=== PATIENT | male | born 1970 | race Caucasian/White ===

== ENCOUNTER 2019-02-08 04:06 | Emergency (ER) | payer OTHER, SELFPAY ==
--- NOTE | 2019-02-08 04:10 | DI.CT.S_ITS ---
PROCEDURE: CT ABDOMEN PELVIS W CON INDICATIONS: ABDOMINAL PAIN TECHNIQUE: After the administration of intravenous contrast, 5 mm thick sections acquired from the diaphragm to the symphysis. 5 mm coronal and sagittal reformats were acquired. For radiation dose reduction, the following was used: automated exposure control, adjustment of mA and/or kV according to patient size. COMPARISON: None. FINDINGS: Image quality: Excellent. ABDOMEN: Lung bases: Lung bases are clear. Heart size is normal. Solid organs: Liver is normal in size and enhancement. Diffuse fatty infiltration of the liver. Gallbladder is within normal limits. Biliary system is non dilated. Pancreas enhances normally. Spleen is normal in size and enhancement. No adrenal nodules. Kidneys demonstrate normal size and enhancement, without hydronephrosis. Peritoneum and bowel: Bowel loops demonstrate normal wall thickness and caliber. No free fluid or air. The appendix is not definitely visualized, however no free fluid or inflammatory changes are noted adjacent to the cecum. Nodes and vessels: No retroperitoneal or mesenteric adenopathy by size criteria. Aorta and inferior vena cava are normal in size. Miscellaneous: No ventral hernias. PELVIS: Genitourinary: Bladder wall thickness is normal. Miscellaneous: No inguinal hernias or adenopathy. Bones: No suspicious bony lesions. No vertebral body compression fractures. IMPRESSION: 1. No acute disease process. 2. The appendix is not directly visualized. No secondary signs of appendicitis such as free fluid or inflammatory changes are identified adjacent to the cecum. 3. No free fluid or free air. 4. No dilated loops of bowel. 5. Hepatic steatosis. Dictated by: Izzy Jarrett MD, PhD on 02/08/2019 at 7:30 Approved by: Izzy Jarrett MD, PhD on 02/08/2019 at 7:34
--- NOTE | 2019-02-08 06:00 | PC.NURSE ---
Pt was seen during downtime, please see paper charting.
[2019-02-08 09:18] LABS: Alanine Aminotransferase 32 IU/L (21-72); Albumin 4.6 g/dL (3.5-5.0); Albumin Globulin Ratio 1.6 (1.0-2.8); Alkaline Phosphatase 65 U/L (38-126); Aspartate Aminotransferase 24 IU/L (17-59); Bilirubin Total 0.5 mg/dL (0.2-1.3); Blood Urea Nitrogen 16 mg/dL (9-20); Calcium 9.2 mg/dL (8.4-10.2); Carbon Dioxide 27 mmol/L (22-32); Chloride 100 mmol/L (98-107); Estimated Glomerular Filt Rate > 60.0 mL/min (>60); Globulin 2.8 g/dL (1.7-4.1); Glucose 123 mg/dL (70-100); HEMOLYSIS 18 (0-50); Lipase 73 U/L (23-300); Potassium 4.2 mmol/L (3.4-5.1); Sodium 136 mmol/L (137-145); Total Protein 7.4 g/dL (6.3-8.2); Troponin I < 0.012 ng/mL (0.01-0.034)
[2019-02-08 09:24] LABS: Add Manual Diff / Slide Review NO; Basophils Absolute Auto 0 /uL (0-100); Basophils Percent Auto 0.7 % (0-2); Eosinophils Absolute Auto 100 /uL (0-450); Eosinophils Percent Auto 1.6 % (2-4); Hematocrit 43.1 % (41-53); Hemoglobin 14.9 g/dL (13.5-17.5); Lymphocytes Absolute Auto 2000 /uL (1100-4500); Lymphocytes Percent Auto 28.2 % (25-40); Mean Corpuscular HGB Conc 34.6 % (30-36); Mean Corpuscular Volume 86.7 fL (80-100); Monocytes Absolute Auto 400 /uL (0-900); Monocytes Percent Auto 6.1 % (3-14); Neutrophils Absolute Auto 4500 /uL (1500-7000); Neutrophils Percent Auto 63.4 % (50-75); Platelet Count 235 X10^3/uL (150-400); Red Blood Cell Count 4.97 X10^6/uL (4.5-5.9); White Blood Cell Count 7.1 X10^3/uL (4.5-11.0)
== END 2019-02-08 06:00 | disposition home or self-care (01) ==
PROVIDERS: Emergency Provider Emergency Medicine
DX: R10.9 Unspecified abdominal pain (principal)
CPT/HCPCS: 74177; 80053; 83690; 84484; 85025; 93005; 99281; 99285; Q9967

== ENCOUNTER 2024-08-22 18:01 | Emergency (ER) | payer OTHER, SELFPAY ==
[2024-08-22] VITALS (7 sets, daily range): BP systolic 135–184; BP diastolic 85–108; PULSE 54–68; RESP 11–24; TEMP 36.6; O2SAT 95–98; BMI 31.0
--- NOTE | 2024-08-22 18:21 | DI.RAD.S_ITS ---
PROCEDURE: XR CHEST 1V INDICATIONS: chest pain TECHNIQUE: One view of the chest was acquired. COMPARISON: None. FINDINGS: Surgical changes and devices: None. Lungs and pleura: Lungs are clear. No pleural effusions or pneumothorax. Mediastinum: Mediastinal contours appear normal. Heart size is normal. Bones and chest wall: No suspicious bony lesions. Overlying soft tissues appear unremarkable. IMPRESSION: No acute cardiopulmonary abnormalities or focal consolidation. Dictated by: Nic Hardy M.D. on 08/22/2024 at 17:42 Approved by: Nic Hardy M.D. on 08/22/2024 at 17:43
--- NOTE | 2024-08-22 18:23 | EKG_ITS ---
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
[2024-08-22 18:54] LABS: Add Manual Diff / Slide Review NO; Basophils Absolute Auto 100 /uL (0-100); Basophils Percent Auto 0.8 % (0-2); Eosinophils Absolute Auto 200 /uL (0-450); Eosinophils Percent Auto 2.5 % (2-4); Hematocrit 45.4 % (41-53); Hemoglobin 15.4 g/dL (13.5-17.5); Lymphocytes Absolute Auto 2100 /uL (1100-4500); Lymphocytes Percent Auto 28.4 % (25-40); Mean Corpuscular Hemoglobin 29.9 PG (26-34); Mean Corpuscular Volume 87.9 fL (80-100); Monocytes Absolute Auto 500 /uL (0-900); Monocytes Percent Auto 6.5 % (3-14); Neutrophils Absolute Auto 4500 /uL (1500-7000); Neutrophils Percent Auto 61.8 % (50-75); Platelet Count 273 X10^3/uL (150-400); Red Blood Cell Count 5.17 X10^6/uL (4.5-5.9); Red Cell Distribution Width 12.7 % (11.6-14.8); White Blood Cell Count 7.4 X10^3/uL (4.5-11.0)
[2024-08-22 19:06] LABS: Prothrombin Time 11.3 SECONDS (9.4-12.5)
[2024-08-22 19:08] LABS: PTT Partial Thromboplastin Tim 43 SECONDS (25.1-36.5)
[2024-08-22 19:09] LABS: Alanine Aminotransferase 45 IU/L (<50); Albumin 4.9 g/dL (3.5-5.0); Albumin Globulin Ratio 1.8 (1.0-2.8); Alkaline Phosphatase 61 U/L (38-126); Aspartate Aminotransferase 28 IU/L (17-59); BUN Creatinine Ratio 14.2 (6-22); Bilirubin Total 0.7 mg/dL (0.2-1.3); Blood Urea Nitrogen 16 mg/dL (9-20); Calcium 9.4 mg/dL (8.4-10.2); Carbon Dioxide 25 mmol/L (22-32); Chloride 102 mmol/L (98-107); Creatine Kinase 104 U/L (55-170); Estimated Glomerular Filt Rate > 60 mL/min (>60); Globulin 2.8 g/dL (1.7-4.1); Glucose 94 mg/dL (70-100); HEMOLYSIS < 15 (0-50); Lipase 126 U/L (23-300); Magnesium 2.1 mg/dL (1.6-2.3); Potassium 3.9 mmol/L (3.4-5.1); Sodium 138 mmol/L (137-145); Total Protein 7.7 g/dL (6.3-8.2)
[2024-08-22 19:21] LABS: NT-proBNP (BNP-Adult 18+) < 20 pg/mL (<125); Troponin I < 0.012 ng/mL (0.01-0.034)
--- NOTE | 2024-08-22 19:44 | ED.CHESTPAIN ---
HPI - Chest Pain General Chief Complaint: Chest Pain Stated Complaint: arm pain high BP 157/110 Time Seen by Provider: 08/22/24 19:44 Source: patient, family, RN notes reviewed and old records reviewed Mode of arrival: Ambulatory Limitations: no limitations History of Present Illness HPI narrative: 54-year-old male history of hypertension which has been untreated presents for complaint of hypertension also states some tenderness of the volar wrist that he can reproduce with palpation. Patient states no other symptoms. He denies headache, denies vision changes, no chest pain or shortness of breath, no nausea or vomiting, no GI or urinary symptoms. No swelling in extremities. No abdominal back or flank pain. States pain is only present when he pushes on the volar side of his wrist sort of moves up linearly. Denies any numbness or tingling. Movement does not make it worse. If he was at rest or not doing anything he does not feel it that is only present when he palpates the area. Patient states he has been checking his blood pressure for about the past week has gotten blood pressures of a systolic of 141 50s on average and a diastolic of 100 to 110s. With a past 5 or so years typically his numbers has been similar to this. He was never been on blood pressure medication he does not take any prescriptions daily. Does not have a primary care physician. Has a history of pilonidal cyst removal. No known drug allergies. No tobacco, alcohol every couple weeks to months, no recreational drugs. Related Data Previous Rx's Medication Instructions Recorded benzonatate 100 mg capsule 200 mg (2 x 100 mg) PO BID PRN 06/21/23 cough #20 caps fluticasone propionate 50 1 spray intranasal Q12H #16 grams 06/21/23 mcg/actuation nasal spray,suspension (Flonase Allergy Relief) lisinopril 2.5 mg tablet 2.5 mg PO DAILY #30 tabs 08/22/24 Allergies Allergy/AdvReac Type Severity Reaction Status Date / Time No Known Drug Allergies Allergy Verified 08/22/24 18:22 Review of Systems Review of Systems ROS Unobtainable: All systems reviewed & are unremarkable except as noted in HPI and below Patient History Social History Smoking Status: Never smoker Smoking Status: Never smoker Exam Narrative Exam Narrative: GENERAL: Alert and oriented x three, well-appearing male in no acute distress. HEENT: Head normocephalic, atraumatic, EOMI, pupils reactive, face symmetric, moist mucous membranes NECK: Supple, full range of motion CARDIOVASCULAR: Regular rate and rhythm without murmurs, rubs or gallops. RESPIRATORY: Breath sounds equal bilaterally, no wheezes rales or rhonchi. ABDOMEN: Soft, nontender. Normoactive bowel sounds all 4 quadrants. No guarding or rebound, rigidity, no mass : No CVA tenderness EXTREMITIES: Normal range of motion, no clubbing or edema. Neurovascularly intact. 2+ radial pulse. Normal sensation, no swelling. Equal v[employer] social media and crm bilaterally. 5/5 muscle strength upper extremities. NEUROLOGICAL: Cranial nerves II through XII grossly intact. Moving all extremities SKIN: Warm, dry, no petechiae, no rashes or lesions. Initial Vital Signs Initial Vital Signs: Vital Signs Temperature 98 F 08/22/24 18:22 Pulse Rate 59 L 08/22/24 18:22 Respiratory Rate 16 08/22/24 18:22 Blood Pressure 184/108 H 08/22/24 18:22 Pulse Oximetry 97 08/22/24 18:22 Oxygen Delivery Method Room Air 08/22/24 18:22 Course Orders Ordered: ED Orders 08/22/24 18:21 XR chest 1V Stat EKG-12 Lead Stat 08/22/24 18:35 Complete Blood Count AUTO DIFF Stat Comprehensive Metabolic Panel Stat Lipase Stat Magnesium Stat NT-proBNP (BNP-Adult 18+) Stat PTT Partial Thromboplastin Nico Stat Prothrombin Time INR Stat Troponin & CK Cardiac Panel Stat Discontinued Medications Aspirin (Aspirin 81 Mg Chew Tab) 324 mg PO NOW ONE Stop: 08/22/24 18:22 Last Admin: 08/22/24 19:43 Dose: Not Given Documented By: Vital Signs Vital signs: Vital Signs - 8 hr 08/22/24 19:48 08/22/24 19:49 08/22/24 19:49 Pulse Rate 63 54 L Respiratory Rate 14 13 Blood Pressure 158/96 H Pulse Oximetry 97 97 Oxygen Delivery Method 08/22/24 19:51 08/22/24 20:00 08/22/24 20:00 Pulse Rate 59 L 60 Respiratory Rate 18 11 L Blood Pressure 158/97 H 139/92 H Pulse Oximetry 97 95 Oxygen Delivery Method Room Air Room Air 08/22/24 20:30 08/22/24 20:30 Pulse Rate 63 Respiratory Rate 24 Blood Pressure 135/90 Pulse Oximetry 96 Oxygen Delivery Method Room Air MDM - Chest Pain Lab Data 08/22/24 18:35 08/22/24 18:35 Labs: Lab Results 08/22/24 Range/Units 18:35 WBC 7.4 (4.5-11.0) X10^3/uL RBC 5.17 (4.5-5.9) X10^6/uL Hgb 15.4 (13.5-17.5) g/dL Hct 45.4 (41-53) % MCV 87.9 (80-100) fL MCH 29.9 (26-34) PG MCHC 34.0 (30-36) % RDW 12.7 (11.6-14.8) % Plt Count 273 (150-400) X10^3/uL Neut % (Auto) 61.8 (50-75) % Lymph % (Auto) 28.4 (25-40) % [place] % (Auto) 6.5 (3-14) % Eos % (Auto) 2.5 (2-4) % Baso % (Auto) 0.8 (0-2) % Neut # (Auto) 4500 (1445-7609) /uL Lymph # (Auto) 2100 (3284-2791) /uL [place] # (Auto) 500 (0-900) /uL Eos # (Auto) 200 (0-450) /uL Baso # (Auto) 100 (0-100) /uL PT 11.3 (9.4-12.5) SECONDS INR 1.0 (0.9-1.3) APTT 43 H (25.1-36.5) SECONDS Sodium 138 (137-145) mmol/L Potassium 3.9 (3.4-5.1) mmol/L Chloride 102 (98-107) mmol/L Carbon Dioxide 25 (22-32) mmol/L BUN 16 (9-20) mg/dL Creatinine 1.13 (0.66-1.25) mg/dL Estimated GFR > 60 (>60) mL/min BUN/Creatinine Ratio 14.2 (6-22) Glucose 94 (70-100) mg/dL Calcium 9.4 (8.4-10.2) mg/dL Magnesium 2.1 (1.6-2.3) mg/dL Total Bilirubin 0.7 (0.2-1.3) mg/dL AST 28 (17-59) IU/L ALT 45 (<50) IU/L Alkaline Phosphatase 61 (38-126) U/L Total Creatine Kinase 104 (55-170) U/L Troponin I < 0.012 (0.01-0.034) ng/mL NT-Pro-B Natriuret Pep < 20 (<125) pg/mL Total Protein 7.7 (6.3-8.2) g/dL Albumin 4.9 (3.5-5.0) g/dL Globulin 2.8 (1.7-4.1) g/dL Albumin/Globulin Ratio 1.8 (1.0-2.8) Lipase 126 (23-300) U/L ECG Data Attestation: I personally reviewed and interpreted this ECG as follows: Prior ECG tracings: available for review Interpretation: Sinus rhythm rate of 64 MT 144 QRS of 96 QTC of [address] elevation or depression. Patient has prior from 02/08/2019. [facility] Narrative Medical decision making narrative: Sinus rhythm rate of [address] changes appears similar to 2019. Labs show normal white count hemoglobin and platelets. PTT is 43 INR is normal, electrolytes, BUN creatinine not show any abnormalities total CK is 104 troponins less than 0.012 BNP is less than 20. Chest x-ray shows no acute change 54-year-old male comes in with complaint of longstanding hypertension sounds like his systolic runs 140 to 150s pretty regularly with a diastolic of 100-115. He has a little bit of arm discomfort but with palpation only which I do not think is related. His workup otherwise does not show any other major end-organ damage. Discussed with patient he can follow up with primary care to establish and start medication or if he feels comfortable based on his reported history of blood pressure could start a low-dose blood pressure medication. Patient elects to start a prescription and then establish with a physician. Discussed return precautions signs and symptoms to watch for with starting his medication. Discharge Plan Departure Patient Disposition: Home Clinical Impression: Hypertension Instructions: Essential Hypertension Activity Restrictions/Additional Instructions: Call to set up with primary care, use the card that has a website or QR code on it that has a primary care physicians taking new patients locally. From the history reported I suspect you do have some longstanding hypertension, prescription has been sent to [facility] in [place]. Take once daily. Please return for severe headaches, new chest pain, shortness of breath, lightheadedness or passing out, vomiting, new swelling of your extremities, numbness, tingling or weakness or other new or concerning changes. Prescriptions: New lisinopril 2.5 mg tablet 2.5 mg PO DAILY Qty: 30 0RF No Action fluticasone propionate [Flonase Allergy Relief] 50 mcg/actuation spray,suspension 1 spray intranasal Q12H Qty: 16 0RF Rx Instructions: administer into each nostril benzonatate 100 mg capsule 200 mg PO BID PRN (Reason: cough) Qty: 20 0RF Referrals: Miscellaneous,Doctor, MD [Primary Care Provider] - Stand Alone Forms: Patient Portal/API/Survey
== END 2024-08-22 20:41 | disposition home or self-care (01) ==
PROVIDERS: Emergency Provider Emergency Medicine
DX: I10 Essential (primary) hypertension (principal)
CPT/HCPCS: 36415; 71045; 80053; 82550; 83690; 83735; 83880; 84484; 85025; 85610; 85730; 93005; 99283; 99284

== ENCOUNTER 2025-05-29 23:40 | Emergency (ER) | payer OTHER, SELFPAY ==
[2025-05-29 23:52] VITALS: BP 162/102; PULSE 61; RESP 15; TEMP 36.9; O2SAT 96; BMI 31.0
--- NOTE | 2025-05-29 23:58 | ED.ABDPAIN ---
HPI - Abdominal Pain General Chief Complaint: Abdominal Pain Stated Complaint: Abdominal Pain Time Seen by Provider: 05/29/25 23:57 Source: patient Mode of arrival: Ambulatory History of Present Illness HPI narrative: Patient is a 55-year-old male with a history of hypertension comes into the ED from home for evaluation of abdominal pain states that it has tenderness left lower quadrant but states that it started spontaneously at around 5:00 p.m., states that it is constant no radiation, endorses some nausea but no vomiting no surgical history to the abdomen denies any other symptoms such as headache visual disturbance chest pain shortness of breath fever chills or any other GI/ symptoms at this time. Related Data Home Medications ?Medication ?Instructions ?Recorded ?Confirmed No Known Home Medications 05/29/25 05/29/25 Allergies Allergy/AdvReac Type Severity Reaction Status Date / Time No Known Drug Allergies Allergy Verified 05/29/25 23:52 Review of Systems Review of Systems Narrative: General: Denies fever, chills, weight loss HEENT: Denies headache, eye drainage, eye irritation, head trauma, sore throat, voice change Cardiovascular: Denies any chest pain, palpitations, tachycardia Respiratory: Denies any shortness of breath, cough, wheeze, stridor GI/: Positive abdominal pain, nausea, denies vomiting, diarrhea, bright red blood per rectum, melanotic stools, urinary frequency, urinary retention, dysuria, hematuria MSK: Denies any joint pain, muscle pains, swelling Skin: Denies any rashes, lesions, discoloration Neuro: Denies any headache, lightheadedness, dizziness, fainting, weakness Psych: Denies SI/HI Patient History Social History Smoking Status: Never smoker Smoking Status: Never smoker Exam Narrative Exam Narrative: General: Cooperative, well-developed, not in acute distress HEENT: Normocephalic, atraumatic, PERRLA, normal sclera, eyelids normal Neck: Active full range of motion, atraumatic Chest: Normal to inspection, negative crepitus, no overlying erythema ecchymosis Respiratory: Normal respiratory effort, not in acute respiratory distress, clear to auscultation bilaterally negative cough, wheeze, tachypnea, rhonchi, rales Cardiology: Regular rate rhythm negative gallop, murmur, rubs GI/: Mild tenderness to palpation to lower quadrants, soft, non rigid, normal to inspection, exam deferred MSK: Full active range of motion in all 4 extremities, atraumatic, no tenderness to palpation of any bony prominences Skin: No rashes or lesions noted Neuro: Alert awake oriented x3, moves all 4 extremities spontaneously, cranial nerves intact, able to answer all questions appropriately follows commands appropriately Psych: Cooperative, negative suicidal or homicidal ideations Initial Vital Signs Initial Vital Signs: Vital Signs Temperature 98.5 F 05/29/25 23:52 Pulse Rate 61 05/29/25 23:52 Respiratory Rate 15 05/29/25 23:52 Blood Pressure 162/102 H 05/29/25 23:52 Pulse Oximetry 96 05/29/25 23:52 Oxygen Delivery Method Room Air 05/29/25 23:52 Course Orders Ordered: ED Orders 05/30/25 00:00 Complete Blood Count AUTO DIFF Stat Comprehensive Metabolic Panel Stat Lactate (Lactic Acid) Stat Lipase Stat MAG [Magnesium] Stat 05/30/25 00:02 CT abdomen pelvis w con Stat Discontinued Medications Sodium Chloride (Normal Saline 0.9%) 1,000 mls @ 1,000 mls/hr IV BOLUS ONE Stop: 05/30/25 01:01 Last Admin: 05/30/25 00:09 Dose: 1,000 mls/hr Documented By: TOMMY Morphine Sulfate (Morphine 4 Mg/Ml Inj) 4 mg IV NOW ONE Stop: 05/30/25 00:03 Last Admin: 05/30/25 00:09 Dose: 4 mg Documented By: TOMMY Ondansetron HCl (Ondansetron 4 Mg/2 Ml Inj) 4 mg IV NOW ONE Stop: 05/30/25 00:03 Last Admin: 05/30/25 00:09 Dose: 4 mg Documented By: TOMMY Vital Signs Vital signs: Vital Signs - 8 hr 05/29/25 23:52 05/30/25 00:14 05/30/25 00:16 Temperature 98.5 F Pulse Rate 61 66 Respiratory Rate 15 Blood Pressure 162/102 H 163/101 H Pulse Oximetry 96 97 Oxygen Delivery Method Room Air 05/30/25 00:16 05/30/25 00:30 05/30/25 00:30 Temperature Pulse Rate 58 L 56 L Respiratory Rate Blood Pressure 161/105 H Pulse Oximetry 94 95 Oxygen Delivery Method Room Air 05/30/25 00:56 05/30/25 00:56 05/30/25 01:00 Temperature Pulse Rate 60 57 L Respiratory Rate Blood Pressure 153/94 H Pulse Oximetry 94 98 Oxygen Delivery Method Room Air 05/30/25 01:00 Temperature Pulse Rate Respiratory Rate Blood Pressure 142/91 H Pulse Oximetry Oxygen Delivery Method MDM - Abdominal Pain Lab Data 05/30/25 00:00 05/30/25 00:00 Labs: Lab Results 05/30/25 Range/Units 00:00 WBC 11.5 H (4.5-11.0) X10^3/uL RBC 5.22 (4.5-5.9) X10^6/uL Hgb 15.2 (13.5-17.5) g/dL Hct 44.2 (41-53) % MCV 84.6 (80-100) fL MCH 29.1 (26-34) PG MCHC 34.4 (30-36) % RDW 13.2 (11.6-14.8) % Plt Count 263 (150-400) X10^3/uL Neut % (Auto) 74.5 (50-75) % Lymph % (Auto) 17.5 L (25-40) % [place] % (Auto) 5.8 (3-14) % Eos % (Auto) 1.7 L (2-4) % Baso % (Auto) 0.5 (0-2) % Neut # (Auto) 8600 H (0609-4134) /uL Lymph # (Auto) 2000 (5114-3847) /uL [place] # (Auto) 700 (0-900) /uL Eos # (Auto) 200 (0-450) /uL Baso # (Auto) 100 (0-100) /uL Sodium 139 (137-145) mmol/L Potassium 4.1 (3.4-5.1) mmol/L Chloride 99 (98-107) mmol/L Carbon Dioxide 30 (22-32) mmol/L BUN 18 (9-20) mg/dL Creatinine 1.14 (0.66-1.25) mg/dL Estimated GFR > 60 (>60) mL/min BUN/Creatinine Ratio 15.8 (6-22) Glucose 114 H (70-99) mg/dL Lactate 1.0 (0.7-2.1) mmol/L Calcium 10.3 H (8.4-10.2) mg/dL Magnesium 2.1 (1.6-2.3) mg/dL Total Bilirubin 0.4 (0.2-1.3) mg/dL AST 27 (17-59) IU/L ALT 36 (<50) IU/L Alkaline Phosphatase 64 (38-126) U/L Total Protein 7.6 (6.3-8.2) g/dL Albumin 4.9 (3.5-5.0) g/dL Globulin 2.7 (1.7-4.1) g/dL Albumin/Globulin Ratio 1.8 (1.0-2.8) Lipase 92 (23-300) U/L Point of care testing: Urine Dip Bedside Urine Glucose Negative Bedside Urine Bilirubin - Negative Bedside Urine Ketone - Negative Urine Specific [place] 1.010 Bedside Urine Occult Blood - Negative Bedside Urine pH 6.5 Bedside Urine Protein - Negative Bedside Urine Urobilinogen - Negative Bedside Urine Nitrite - Negative Bedside Urine Leukocytes - Negative Esterase MDM Narrative Medical decision making narrative: 55-year-old male with a past medical history of hypertension comes into the ED from home for evaluation of left lower quadrant abdominal pain ongoing persistent for the past several hours, states he does endorse some nausea secondary to the pain but no vomiting, no history of abdominal surgeries, states he was able to have a bowel movement when the pain started, no radiation. Patient's urinalysis not consistent with acute urinary tract infection, CT scan of the abdomen did not show any signs of acute intra-abdominal pathology, incidentally did note a cystic structure in the right lower quadrant suggestive of benign mesenteric cyst this was informed to the patient for outpatient follow up, patient's lab work reviewed, very mild leukocytosis of 11.5 most likely reactive secondary to pain as well as no signs of infection on urinalysis or CT scan, Chem panel unremarkable, patient's abdominal pain at this point without any acute findings, he will be sent home with symptomatic relief and instructed to follow up with the primary care in outpatient setting, he verbalized understanding of this and agrees to being discharged home with outpatient follow up Discharge Plan Departure Patient Disposition: Home Clinical Impression: Abdominal pain Instructions: DI for Abdominal Pain-Adult Activity Restrictions/Additional Instructions: Please follow up with your primary care doctor and Gastroenterology in outpatient setting Please read the discharge instructions sheet carefully and bring all papers to all doctor follow-up visits, as it may contain information that your doctor may want to see. Disease processes change and evolve, if your symptoms worsen or if you develop any new symptoms that are concerning to you please return for evaluation. Your evaluation today does not show any evidence of any life-threatening/serious illnesses requiring admission to the hospital or surgery. Please follow-up with your doctor for re-evaluation in approximately 1 day. Seek immediate medical attention for any worrisome symptoms. *If you do not have a primary care provider please contact the [facility] Resource line at [phone]. They will ask some questions about your medical history and help get you set up with a doctor in the community. Prescriptions: No Action No Known Home Medications Referrals: Richard Munson MD [Non-Staff, Internal Medicine] Miscellaneous,MD [place] [Primary Care Provider, Medical] Stand Alone Forms: Patient Portal/API
[2025-05-30] VITALS (7 sets, daily range): BP systolic 138–163; BP diastolic 91–105; PULSE 54–66; O2SAT 94–98
--- NOTE | 2025-05-30 00:02 | DI.CT.S_ITS ---
PROCEDURE: CT ABDOMEN PELVIS W CON INDICATIONS: Lower abdominal pain, left lower quadrant worse TECHNIQUE: After the administration of intravenous contrast, axial sections acquired from the lung bases to the pubic symphysis. Coronal and sagittal reformats were performed. For radiation dose reduction, the following was used: automated exposure control, adjustment of mA and/or kV according to patient size. COMPARISON: None available at the time of dictation. FINDINGS: Image quality: Diagnostic. Lower Chest: No significant findings. ABDOMEN: Liver: Subcentimeter hypodensities too small to fully characterize. Gallbladder: No radiopaque gallstones or wall thickening. Biliary ducts: No biliary dilation. Pancreas: No ductal dilation. Spleen: Size is within normal limits. Adrenal Glands: No adrenal nodules. Kidneys and Ureters: No hydronephrosis. No solid mass. No complex renal cystic lesion which requires follow up. Stomach and Bowel: Normal colonic caliber, without significant wall thickening. Peritoneum: Thin-walled cystic structure measuring simple fluid density abutting the ileum in the right lower quadrant measuring 2.5 x 3.0 x 3.7 cm (2/110). No abnormal intraperitoneal fluid. No free air. Ventral Wall: No significant ventral hernia. Abdominal Nodes: No retroperitoneal or mesenteric adenopathy by size criteria. Vessels: Aorta and inferior vena cava are normal in size. PELVIS: Pelvic Organs: Unremarkable. Bladder: No bladder wall thickening, accounting for underdistention. Pelvic Nodes: No enlarged lymph nodes. Miscellaneous: No inguinal hernias are seen. Bones: No aggressive osseous abnormality. IMPRESSION: No acute abnormality to explain patient's pain is identified. 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 Dictated by: Mayela Kincaid M.D. on 05/30/2025 at 1:53 Approved by: Mayela Kincaid M.D. on 05/30/2025 at 1:58
[2025-05-30] MEDS: MORPHINE 4 MG/ML INJ IV (00:09)
[2025-05-30] MEDS: SODIUM CHLORIDE 0.9% 1,000 ML 1000 ML IV (00:09)
[2025-05-30] MEDS: ONDANSETRON 4 MG/2 ML INJ IV (00:09)
[2025-05-30 00:16] LABS: Add Manual Diff / Slide Review NO; Hematocrit 44.2 % (41-53); Hemoglobin 15.2 g/dL (13.5-17.5); Lymphocytes Absolute Auto 2000 /uL (1100-4500); Mean Corpuscular HGB Conc 34.4 % (30-36); Mean Corpuscular Hemoglobin 29.1 PG (26-34); Mean Corpuscular Volume 84.6 fL (80-100); Platelet Count 263 X10^3/uL (150-400)
[2025-05-30 00:27] LABS: Alanine Aminotransferase 36 IU/L (<50); Albumin 4.9 g/dL (3.5-5.0); Albumin Globulin Ratio 1.8 (1.0-2.8); Alkaline Phosphatase 64 U/L (38-126); Blood Urea Nitrogen 18 mg/dL (9-20); Calcium 10.3 mg/dL (8.4-10.2); Carbon Dioxide 30 mmol/L (22-32); Chloride 99 mmol/L (98-107); Estimated Glomerular Filt Rate > 60 mL/min (>60); Globulin 2.7 g/dL (1.7-4.1); Glucose 114 mg/dL (70-99); HEMOLYSIS < 15 (0-50); Lipase 92 U/L (23-300); Magnesium 2.1 mg/dL (1.6-2.3); Potassium 4.1 mmol/L (3.4-5.1); Sodium 139 mmol/L (137-145); Total Protein 7.6 g/dL (6.3-8.2)
[2025-05-30 00:28] LABS: Lactate (Lactic Acid) 1.0 mmol/L (0.7-2.1)
[2025-05-30] MEDS: ONDANSETRON 4 MG ODT PREPACK 1 BOTTLE MISC (02:29)
[2025-05-30] MEDS: KETOROLAC 30 MG/ML VIAL IV (02:29)
== END 2025-05-30 02:42 | disposition home or self-care (01) ==
PROVIDERS: Emergency Provider Student in an Organized Health Care Education/Training Program
DX: R10.32 Left lower quadrant pain (principal); R10.814 Left lower quadrant abdominal tenderness; R11.0 Nausea
CPT/HCPCS: 36415; 74177; 80053; 81003; 83605; 83690; 83735; 85025; 99284; J1885; J2272; J2405; J7030; Q9967